=== PATIENT | female | born 1985 | race Caucasian/White ===

== ENCOUNTER → 2019-03-26 | Outpatient (CLI) | payer BC ==
--- NOTE | 2019-03-26 11:28 | XR ---
Lumbar spine HISTORY: Back pain 3 views of the lumbar spine There is multilevel spondylosis. Lumbar vertebral bodies show preserved height, alignment, and bone m ineralization. There is partial sacralization of the left L5 vertebral body with some hypertrophic ch anges present at the articulation of the pelvis. Loss of disc height present at L5-S1. Sclerosis pres ent in the posterior elements. IMPRESSION: Degenerative disc disease and facet arthropathy. Congenital anomaly described above.
--- NOTE | 2019-03-26 11:34 | XR ---
Thoracic spine HISTORY: Back pain 3 views of the thoracic spine Thoracic vertebral bodies show preserved height and bone mineralization. There is multilevel spondylo sis, gentle spinal curvature noted. Disc spaces are maintained. IMPRESSION: No acute abnormality. Thoracic spondylosis. Mild spinal curvature.
--- NOTE | 2019-03-26 13:26 | US ---
EXAMINATION TYPE: US abdomen limited DATE OF EXAM: 03/26/2019 COMPARISON: NONE CLINICAL HISTORY: R10.12 Abdominal pain, M54.6 back pain. LUQ pain x 2 months. Nausea. EXAM MEASUREMENTS: Spleen: 9.8 cm Left Kidney: 11.1 x 5.4 x 6.2 cm *Limited due to gas. 1. Spleen: appears wnl 2. Left Kidney: No hydronephrosis or masses seen Pancreas Limited by bowel gas. IMPRESSION: 1. Limited left upper quadrant ultrasound demonstrates no acute abnormality.
== END | disposition home or self-care (01) ==
LOC: RADUSWWP 10:44
PROVIDERS: ATTEND Internal Medicine Hematology & Oncology
DX: M51.36 Other intervertebral disc degeneration, lumbar region (principal); M47.814 Spondylosis without myelopathy or radiculopathy, thoracic region; M46.96 Unspecified inflammatory spondylopathy, lumbar region; R10.12 Left upper quadrant pain
CPT/HCPCS: 72072; 72100; 76705

== ENCOUNTER → 2019-05-17 | Outpatient (CLI) | payer BC ==
--- NOTE | 2019-05-17 08:52 | CT ---
EXAMINATION TYPE: CT abdomen wo con DATE OF EXAM: 05/17/2019 COMPARISON: None INDICATION: LUQ pain DLP: 538.2 mGycm, Automated exposure control for dose reduction was used. CONTRAST: 0 mL of Isovue 300. Study performed without Oral Contrast TECHNIQUE: Axial images were obtained from above the diaphragm to the pubic rami in the axial plane a t 5 mm thick sections. Reconstructed images are reviewed on the computer in the coronal plane. FINDINGS: Limited CT sections are obtained the lung bases. The lung bases are clear. CT ABDOMEN: Liver: Normal Spleen: Normal Pancreas: Normal Adrenal glands: The adrenal glands are normal. Gallbladder: Normal Kidneys: No masses are evident. No hydronephrosis is present. No cysts are present. No renal stone s are identified. Aorta: Normal Inferior vena cava: Normal. Loops of bowel within the abdomen and pelvis are normal. Study is performed without oral contrast limiting bowel evaluation. There are some scattered diverticuli present IMPRESSIONS: 1. Normal noncontrast CT abdomen 2. Mild scattered diverticulosis without acute diverticulitis.
== END | disposition home or self-care (01) ==
LOC: RADCTMAIN 08:03
PROVIDERS: ATTEND Family Medicine
DX: K57.90 Diverticulosis of intestine, part unspecified, without perforation or abscess without bleeding (principal)
CPT/HCPCS: 74150

== ENCOUNTER 2019-08-24 08:25 | Day surgery (SDC) | payer BC ==
[2019-08-22 12:39] VITALS: BMI 34.5
[~2019-08-24 08:25] MED LIST: LACTATED RINGERS 1,000 ML IV SCH; LIDOCAINE 1% 20 ML VIAL (10MG/ML) FOR IV START INTRADERMA PRN
[2019-08-24 08:47] VITALS: TEMP 97
[2019-08-24] MEDS ORDERED: PROPOFOL 10 MG/ML 20 ML VIAL IV ONE (09:05)
--- NOTE | 2019-08-24 09:18 | P.GSHP ---
History of Present Illness H&P Date: 08/24/19 Chief Complaint: Change in bowel habits Patient today for colonoscopy. She has had complaints of left-sided abdominal pain and change in bowel habits. Frequent diarrhea. No rectal bleeding. No weight loss. Some nausea. Ultrasound and CAT scan normal. Past Medical History Past Medical History: No Reported History Additional Past Medical History / Comment(s): left upper abd. pain on & off since January, gas, bloating, change in bowel habits History of Any Multi-Drug Resistant Organisms: None Reported Past Surgical History: No Surgical Hx Reported Additional Past Surgical History / Comment(s): wisdom teeth removed Past Anesthesia/Blood Transfusion Reactions: Family History of Problems w/ Anesthesia Additional Past Anesthesia/Blood Transfusion Reaction / Comment(s): maternal grandfather's side of family might have anesthesia problem- distant relative never came out of anesthetic & -not sure of actual problem Smoking Status: Never smoker - Past Family History Mother Family Medical History: No Reported History Medications and Allergies Home Medications Medication Instructions Recorded Confirmed Type Dicyclomine [Bentyl] 10 mg PO TID PRN 08/22/19 08/24/19 History Allergies Allergy/AdvReac Type Severity Reaction Status Date / Time No Known Allergies Allergy Verified 08/24/19 08:48 Surgical - Exam Vital Signs Temp Pulse Resp BP Pulse Ox 97 F L 82 16 135/87 97 08/24/19 08:45 08/24/19 08:45 08/24/19 08:45 08/24/19 08:45 08/24/19 08:45 Physical exam: General: Well-developed, well-nourished HEENT: Normocephalic, sclerae nonicteric Abdomen: Nontender, nondistended Extremities: No edema Neuro: Alert and oriented Assessment and Plan (1) Change in bowel habits Narrative/Plan: Will proceed with colonoscopy Current Visit: Yes Status: Acute Code(s): R19.4 - CHANGE IN BOWEL HABIT SNOMED Code(s): 228752355
--- NOTE | 2019-08-24 09:32 | P.PCN ---
Date of Procedure: 08/24/19 Procedure(s) Performed: PREOPERATIVE DIAGNOSIS: Change in bowel habits POSTOPERATIVE DIAGNOSIS: Diverticulosis PROCEDURE: Colonoscopy with random biopsy ANESTHESIA: MAC SURGEON: Fidel Suarez M.D. SPECIMENS: Random colon biopsy ENDOSCOPIC PROCEDURE: The patient was placed on the endoscopy table in the left decubitus position. The Olympus colonoscope was inserted into the anus and passed under direct visualization to the base of the cecum. The appendiceal orifice was visualized. From that point the scope was slowly withdrawn inspecting all surfaces carefully. There were no neoplastic inflammatory or polypoid lesions throughout the cecum, ascending, transverse, descending, sigmoid and rectum. There was mild left-sided diverticulosis noted. Random biopsies were taken to evaluate for microscopic colitis. Digital rectal examination was normal. The patient was taken to the recovery room in stable condition per anesthesia guidelines. RECOMMENDATIONS: Await biopsy results.
[2019-08-24 09:37] VITALS: RESP 18
[2019-08-24 09:49] VITALS: BP 115/75; PULSE 70
== END 2019-08-24 10:05 | disposition home or self-care (01) ==
LOC: ORWHC2ENDO 08:25
PROVIDERS: ATTEND Surgery
DX: K57.30 Diverticulosis of large intestine without perforation or abscess without bleeding (principal); K21.9 Gastro-esophageal reflux disease without esophagitis
CPT/HCPCS: 81025; 88305; 45380; J2704

== ENCOUNTER 2020-09-19 09:49 | Emergency (ER) | payer BC ==
[2020-09-19] MEDS ORDERED: SODIUM CHLORIDE 0.9% 1,000 ML IV STA (10:16)
[2020-09-19] MEDS ORDERED: DICYCLOMINE 10 MG/ML 2 ML AMP IM STA (10:17)
[2020-09-19] MEDS ORDERED: ONDANSETRON 4 MG/2 ML VIAL IVP STA (10:17)
[2020-09-19] MEDS ORDERED: PANTOPRAZOLE 40 MG/10 ML VIAL IVP STA (10:17)
[2020-09-19] MEDS ORDERED: SODIUM CHLORIDE 0.9% 500 ML 500 ML IV STA (10:19)
--- NOTE | 2020-09-19 10:20 | ED ---
Fever HPI - General Chief Complaint: Fever Stated Complaint: Fever/covid symptoms/Inquicker Time Seen by Provider: 09/19/20 10:06 Source: patient Mode of arrival: ambulatory Limitations: no limitations - History of Present Illness Initial Comments: 35-year-old female presenting to the emergency department with a chief complaint of nausea vomiting diarrhea and body aches. Patient states her symptoms began about 2 days ago when she developed profuse diarrhea but no signs of hematochezia or melena. Patient states the following day she also developed nausea with multiple episodes of nonbilious and nonbloody vomiting. States she continues to be nauseous with no pulmonary symptoms. States she also developed some body aches but denies any cough. States one day ago she also developed a fever of 101. Patient states she has no appetite. Denies any cough, wheezing, shortness of breath, chest pain. Denies any vaginal urinary symptoms. Denies any back pain abdominal pain. - Related Data Home Medications Medication Instructions Recorded Confirmed Cyanocobalamin [Vitamin B-12 1,000 mcg SQ Q28H 09/19/20 09/19/20 Injection] Ergocalciferol [Vitamin D2] 50,000 unit PO MO 09/19/20 09/19/20 Famotidine [Pepcid] 20 mg PO DAILY 09/19/20 09/19/20 L.acidoph,Paracasei, B.lactis 1 cap PO DAILY 09/19/20 09/19/20 [Probiotic] Levomefolate Calcium 7.5 mg PO DAILY 09/19/20 09/19/20 [l-Methylfolate Calcium] Semaglutide [Ozempic] 1 mg SQ MO 09/19/20 09/19/20 Previous Rx's Medication Instructions Recorded Ondansetron Odt [Zofran Odt] 4 mg PO Q8HR PRN #20 tab 09/19/20 Allergies Allergy/AdvReac Type Severity Reaction Status Date / Time No Known Allergies Allergy Verified 09/19/20 10:36 Review of Systems ROS Statement: Those systems with pertinent positive or pertinent negative responses have been documented in the HPI. ROS Other: All systems not noted in ROS Statement are negative. Past Medical History Past Medical History: No Reported History History of Any Multi-Drug Resistant Organisms: None Reported Past Surgical History: No Surgical Hx Reported Past Psychological History: Anxiety Smoking Status: Never smoker Past Alcohol Use History: Occasional Past Drug Use History: None Reported General Exam Limitations: no limitations General appearance: alert, in no apparent distress, obese Head exam: Present: atraumatic, normocephalic, normal inspection Eye exam: Present: normal appearance, PERRL, EOMI Pupils: Present: normal accommodation ENT exam: Present: normal exam, normal oropharynx, mucous membranes dry, TM's normal bilaterally, normal external ear exam Neck exam: Present: normal inspection, full ROM. Absent: tenderness Respiratory exam: Present: normal lung sounds bilaterally. Absent: respiratory distress, wheezes, rales Cardiovascular Exam: Present: regular rate, normal rhythm, normal heart sounds. Absent: bradycardia, tachycardia, systolic murmur, diastolic murmur GI/Abdominal exam: Present: soft. Absent: tenderness, guarding, rebound Extremities exam: Present: normal inspection, full ROM, normal capillary refill. Absent: tenderness, pedal edema, joint swelling, calf tenderness Back exam: Present: normal inspection, full ROM. Absent: tenderness, CVA tenderness (R), CVA tenderness (L) Neurological exam: Present: alert, oriented X3, CN II-XII intact, normal gait Psychiatric exam: Present: normal affect, normal mood Skin exam: Present: warm, dry, intact, normal color Course Vital Signs 09/19/20 09:56 Temperature 98.0 F Pulse Rate 121 H Respiratory 20 Rate Blood Pressure 141/96 O2 Sat by Pulse 95 Oximetry Medical Decision Making - Medical Decision Making 35-year-old female presenting to emergency department with a chief complaint nausea vomiting diarrhea fever. On physical examination, patient has no abdominal pain. Patient is tachycardic on arrival. I suspect this is secondary to fluid loss from nausea vomiting diarrhea. Patient was given 1.5 L of IV fluids and anti-medics. On reevaluation patient reports improvement in symptoms. Patient was not able to give a urine sample. States there is no guillermina nce for . CBC and CMP is unremarkable. Coag testing pending. She was advised to sulfa side until she received the results of the testing. She was advised to drink plenty of fluids. She will be discharged with Zofran. Return parameters discussed the patient is a understanding and agreeable. On reevaluation, there is improvement in symptoms and vital sign. Case discussed with physician. - Lab Data Result diagrams: 09/19/20 10:53 09/19/20 10:53 Lab Results 09/19/20 09/19/20 Range/Units 10:53 10:53 WBC 6.9 (3.8-10.6) k/uL RBC 5.27 (3.80-5.40) m/uL Hgb 15.1 (11.4-16.0) gm/dL Hct 44.3 (34.0-46.0) % MCV 84.1 (80.0-100.0) fL MCH 28.7 (25.0-35.0) pg MCHC 34.1 (31.0-37.0) g/dL RDW 13.1 (11.5-15.5) % Plt Count 326 (150-450) k/uL MPV 6.7 Neutrophils % 70 % Lymphocytes % 19 % Monocytes % 8 % Eosinophils % 2 % Basophils % 0 % Neutrophils # 4.9 (1.3-7.7) k/uL Lymphocytes # 1.3 (1.0-4.8) k/uL Monocytes # 0.5 (0-1.0) k/uL Eosinophils # 0.1 (0-0.7) k/uL Basophils # 0.0 (0-0.2) k/uL Sodium 140 (137-145) mmol/L Potassium 3.8 (3.5-5.1) mmol/L Chloride 106 (98-107) mmol/L Carbon Dioxide 24 (22-30) mmol/L Anion Gap 10 mmol/L BUN 20 H (7-17) mg/dL Creatinine 0.73 (0.52-1.04) mg/dL Est GFR (CKD-EPI)AfAm >90 (>60 ml/min/1.73 sqM) Est GFR (CKD-EPI)NonAf >90 (>60 ml/min/1.73 sqM) Glucose 97 (74-99) mg/dL Calcium 9.3 (8.4-10.2) mg/dL Total Bilirubin 0.8 (0.2-1.3) mg/dL AST 19 (14-36) U/L ALT 14 (4-34) U/L Alkaline Phosphatase 88 (38-126) U/L Total Protein 7.5 (6.3-8.2) g/dL Albumin 4.4 (3.5-5.0) g/dL Disposition Clinical Impression: Nausea vomiting and diarrhea, Generalized body aches Disposition: HOME SELF-CARE Condition: Stable Instructions (If sedation given, give patient instructions): Fever in Adults (ED) Additional Instructions: Take prescribed medication as directed. He will be contacted regarding Covid results in the next 3-5 days. Until then, self isolate and take Tylenol if he developed fever. Drink plenty of fluids.. Return to emergency department if symptoms worsen Prescriptions: Ondansetron Odt [Zofran Odt] 4 mg PO Q8HR PRN #20 tab PRN Reason: Nausea Is patient prescribed a controlled substance at d/c from ED?: No Referrals: Justin Alvarez DO [Primary Care Provider] - 1-2 days Time of Disposition: 12:18
[2020-09-19 11:13] LABS: Basophils % (A) 0 %; Eosinophils # (A) 0.1 k/uL (0-0.7); Eosinophils % (A) 2 %; HCT 44.3 % (34.0-46.0); HGB 15.1 gm/dL (11.4-16.0); Lymphocytes # (A) 1.3 k/uL (1.0-4.8); Lymphocytes % (A) 19 %; MCH 28.7 pg (25.0-35.0); MCHC 34.1 g/dL (31.0-37.0); MCV 84.1 fL (80.0-100.0); Mean Platelet Volume 6.7; Monocytes # (A) 0.5 k/uL (0-1.0); Monocytes % (A) 8 %; Neutrophils # (A) 4.9 k/uL (1.3-7.7); Neutrophils % (A) 70 %; Platelet Count 326 k/uL (150-450); RBC 5.27 m/uL (3.80-5.40); RDW 13.1 % (11.5-15.5); WBC 6.9 k/uL (3.8-10.6)
[2020-09-19 11:28] LABS: ALT 14 U/L (4-34); AST 19 U/L (14-36); African American GFR (CKD) >90 (>60 ml/min/1.73 sqM); Albumin 4.4 g/dL (3.5-5.0); Alkaline Phosphatase 88 U/L (38-126); Anion Gap 10 mmol/L; Blood Urea Nitrogen 20 mg/dL (7-17); Calcium 9.3 mg/dL (8.4-10.2); Carbon Dioxide 24 mmol/L (22-30); Chloride 106 mmol/L (98-107); Glucose 97 mg/dL (74-99); Non-African American GFR(CKD) >90 (>60 ml/min/1.73 sqM); Potassium 3.8 mmol/L (3.5-5.1); Sodium 140 mmol/L (137-145); Total Bilirubin 0.8 mg/dL (0.2-1.3); Total Protein 7.5 g/dL (6.3-8.2)
[2020-09-19 12:37] VITALS: BP 112/85; PULSE 66; RESP 18; TEMP 98.4
== END 2020-09-19 12:39 | disposition home or self-care (01) ==
LOC: EC 09:49
DX: R11.2 Nausea with vomiting, unspecified (principal); R19.7 Diarrhea, unspecified; R52 Pain, unspecified; E66.9 Obesity, unspecified; Z68.34 Body mass index [BMI] 34.0-34.9, adult; Z20.828 Contact with and (suspected) exposure to other viral communicable diseases
CPT/HCPCS: 80053; 85025; 99283; 96374; 96375; 96361 ×2; 96372; U0003; J0500; J2405; C9113

== ENCOUNTER → 2021-02-11 | Outpatient (CLI) | payer BC ==
--- NOTE | 2021-02-11 09:42 | CT ---
EXAMINATION TYPE: CT soft tissue neck w con DATE OF EXAM: 02/11/2021 COMPARISON: None HISTORY: Left neck mass, dysphagia CT DLP: 640 mGycm CONTRAST: Patient injected with 100 ml mL of Isovue 300. TECHNIQUE: Axial images at 3 mm thick sections. Reconstructed images in the coronal plane and sagitt al plane are reviewed. FINDINGS: Limited CT sections are obtained the lung apices. The lung apices appear clear. CT neck: The torus tubarius and fossa of Rosenmuller are normal. Liner Replacer spaces are normal. Para nasal sinuses and mastoid air cells are clear. Parotid glands appear normal and symmetrical. Submandibular glands, are normal. Parapharyngeal spac es are normal. No suspicious adenopathy is evident. The hypopharynx appears within normal limits. Vocal cord level appear symmetrical. Thyroid as visualized is normal. Osseous structures are normal. No suspicious soft tissue abnormalities are identified. IMPRESSIONS: 1. Normal soft tissue neck CT
--- NOTE | 2021-02-11 10:44 | FL ---
EXAMINATION TYPE: FL barium swallow DATE OF EXAM: 02/11/2021 COMPARISON: None HISTORY: Dysphasia, left neck mass TECHNIQUE: A double air contrast UGI study is performed. FINDINGS: Esophagus dilation normal caliber and has a normal contour to the gastroesophageal junction. The phi roesophageal junction opens to normal caliber. No intraluminal or extramural defects are evident. A f ew tertiary contractions were evident during the examination and the distal third of the esophagus. M ild reflux was elicited during the exam. Fluoroscopy time: 1 minute 19 seconds Images: 18 IMPRESSIONS: 1. Mild presbyesophagus. 2. Mild gastroesophageal reflux
== END | disposition home or self-care (01) ==
LOC: RADCTMAIN 07:34
PROVIDERS: ATTEND Otolaryngology
DX: K21.9 Gastro-esophageal reflux disease without esophagitis (principal); K22.8 Other specified diseases of esophagus
CPT/HCPCS: 74220; 70491; Q9967

== ENCOUNTER → 2021-11-30 | Outpatient (CLI) | payer BC ==
--- NOTE | 2021-12-01 08:11 | MM ---
Reason for exam: clinical finding. Baseline mammogram. History: Took hormonal contraceptives for 15 years. Physical Findings: Nurse Summary: 0.5cm nodule in the right breast at 6 o'clock (nurse bryn). MG 3D Diag Mammo W/Cad MACARIO Bilateral CC and MLO view(s) were taken. There are scattered fibroglandular densities. Finding: There is a 10 mm circumscribed oval mass located 8 cm from the nipple in the outer quadrant, middle, posterior position of the left breast. These results were verbally communicated with the patient and result sheet given to the patient on 11/30/21. ASSESSMENT: Incomplete: need additional imaging evaluation, BI-RAD 0 RECOMMENDATION: Ultrasound of both breasts. (right palpable, left mammographic lesion)
--- NOTE | 2021-12-01 08:14 | USB ---
Reason for exam: additional evaluation requested from abnormal screening. History: Took hormonal contraceptives for 15 years. US Breast Limited BILAT Right limited breast ultrasound including focal area of concern, retroareolar and axilla demonstrates a 0.7 x 0.5 x 0.7cm oval lesion at 7 o'clock, possible dermal in origin, presumed benign. Left limited breast ultrasound including focal area of concern, retroareolar and axilla demonstrates a 0.5 x 0.3 x 0.5cm lesion at 5 o'clock, likely not corresponding to mammographic abnormality. Left mammographic abnormality favor benign lymph node versus simple cyst. These results were verbally communicated with the patient and result sheet given to the patient on 11/30/21. ASSESSMENT: Probably benign, BI-RAD 3 RECOMMENDATION: Follow-up diagnostic mammogram and ultrasound of the left breast in 3 months. (3-6 months)
== END | disposition home or self-care (01) ==
LOC: RADMAMWWP 14:05
PROVIDERS: ATTEND Internal Medicine Hematology & Oncology
DX: N63.0 Unspecified lump in unspecified breast (principal); R92.8 Other abnormal and inconclusive findings on diagnostic imaging of breast
CPT/HCPCS: 77062; 77066

== ENCOUNTER → 2022-03-02 | Outpatient (CLI) | payer BC ==
--- NOTE | 2022-03-02 10:00 | MM ---
Reason for exam: follow-up at short interval from prior study. Last mammogram was performed 3 months ago. History: Took hormonal contraceptives for 15 years. Physical Findings: A clinical breast exam by your physician is recommended on an annual basis and results should be correlated with mammographic findings. MG 3D Diag Mammo W/Cad LT CC and MLO view(s) were taken of the left breast. Prior study comparison: November 30, 2021, bilateral MG 3d diag mammo w/cad MACARIO. There are scattered fibroglandular densities. Finding: There is a stable 9 mm circumscribed oval mass in the slight outer quadrant, middle position of the left breast. There is no discrete abnormality. Results were given to the patient verbally at the time of the exam. ASSESSMENT: Incomplete: need additional imaging evaluation, BI-RAD 0 RECOMMENDATION: Ultrasound of the left breast.
--- NOTE | 2022-03-02 10:01 | USB ---
Reason for exam: additional evaluation requested from abnormal screening. History: Took hormonal contraceptives for 15 years. Physical Findings: A clinical breast exam by your physician is recommended on an annual basis and results should be correlated with mammographic findings. US Breast Limited LT Left limited breast ultrasound including focal area of concern, retroareolar and axilla demonstrates a 0.7 x 0.7 x 0.3cm oval, cystic cluster at 4 o'clock and a 1.7 x 2.1 x 1.0cm lymph node at the axilla. Scanned 12-6 o'clock. Results were given to the patient verbally at the time of the exam. ASSESSMENT: Probably benign, BI-RAD 3 RECOMMENDATION: Ultrasound of the left breast in 6 months.
== END | disposition home or self-care (01) ==
LOC: RADMAMWWP 08:44
PROVIDERS: ATTEND Internal Medicine Hematology & Oncology
DX: R92.8 Other abnormal and inconclusive findings on diagnostic imaging of breast (principal)
CPT/HCPCS: 77061; 77065

== ENCOUNTER 2022-07-13 09:28 | Day surgery (SDC) | payer BC ==
[2022-07-08 10:34] VITALS: BMI 35.0
[~2022-07-13 09:28] MED LIST changes: +LIDOCAINE 1% (10MG/ML) FOR IV START INTRADERMA PRN; -LIDOCAINE 1% 20 ML VIAL (10MG/ML) FOR IV START INTRADERMA PRN
[2022-07-13] MEDS ORDERED: LACTATED RINGERS 1,000 ML IV ONE (10:17)
[2022-07-13 10:19] VITALS: TEMP 98.4
[2022-07-13] MEDS ORDERED: PROPOFOL 10 MG/ML 20 ML VIAL IV ONE (11:33)
--- NOTE | 2022-07-13 11:43 | P.GSHP ---
History of Present Illness H&P Date: 07/13/22 Chief Complaint: GERD 37-year-old female here today for upper endoscopy. Patient with complaints of chronic acid reflux. Recently had an episode of esophagitis. Takes Protonix daily. Taking Carafate intermittently. Past Medical History Past Medical History: GERD/Reflux, Osteoarthritis (OA) Additional Past Medical History / Comment(s): HX IBS, DIVERTICULITIS, ESOPHAGITIS, DDD. History of Any Multi-Drug Resistant Organisms: None Reported Past Surgical History: No Surgical Hx Reported Additional Past Surgical History / Comment(s): COLONOSCOPY Past Anesthesia/Blood Transfusion Reactions: No Reported Reaction, Motion Sickness Past Psychological History: Anxiety Smoking Status: Never smoker Past Alcohol Use History: Occasional Past Drug Use History: None Reported - Past Family History Mother Family Medical History: No Reported History Medications and Allergies Home Medications Medication Instructions Recorded Confirmed Type Cyanocobalamin [Vitamin B-12 1,000 mcg SQ WEEKLY 09/19/20 07/13/22 History Injection] Ergocalciferol [Vitamin D2] 50,000 unit PO MO 09/19/20 07/13/22 History L.acidoph,Paracasei, B.lactis 1 cap PO DAILY 09/19/20 07/13/22 History [Probiotic] Ashwagandha Root Extract 500 mg PO DAILY 07/08/22 07/13/22 History [Ashwagandha] Levomefolate Calcium 15 mg PO DAILY 07/08/22 07/13/22 History [l-Methylfolate Calcium] Multivit with Calcium,Iron,Min 1 each PO DAILY 07/08/22 07/13/22 History [Women's Multivitamin] Pantoprazole [Protonix] 40 mg PO DAILY 07/08/22 07/13/22 History Sucralfate [Carafate] 1 gm PO AC-TID 07/08/22 07/13/22 History Allergies Allergy/AdvReac Type Severity Reaction Status Date / Time No Known Allergies Allergy Verified 07/13/22 10:02 Surgical - Exam Vital Signs Temp Pulse Resp BP Pulse Ox 98.4 F 78 17 118/76 95 07/13/22 10:00 07/13/22 10:00 07/13/22 10:00 07/13/22 10:00 07/13/22 10:00 Physical exam: General: Well-developed, well-nourished HEENT: Normocephalic, sclerae nonicteric Abdomen: Nontender, nondistended Extremities: No edema Neuro: Alert and oriented Assessment and Plan (1) GERD (gastroesophageal reflux disease) Narrative/Plan: Will proceed with upper endoscopy. Current Visit: Yes Status: Acute Code(s): K21.9 - GASTRO-ESOPHAGEAL REFLUX DISEASE WITHOUT ESOPHAGITIS SNOMED Code(s): 903827779
[2022-07-13 12:01] VITALS: RESP 16
[2022-07-13 12:13] VITALS: BP 123/84; PULSE 60
--- NOTE | 2022-07-14 18:09 | P.PCN ---
Date of Procedure: 07/13/22 Procedure(s) Performed: Date of Procedure: 07/13/22 Procedure(s) Performed: Preoperative Dx: GERD Postoperative Dx: Gastritis, small gastric polyp Procedure: EGD with Bx Anesthesia: Sedation Endoscopist: Dr. Suarez Specimens: Gastritis, polyp Endoscopic Procedure: The patient was on the endoscopy table in the left decubitus position. The Olympus gastroscope was inserted into the oropharynx and passed under direct visualization to the region of the third portion of the duodenum. From that point the scope was slowly withdrawn inspecting all surfaces carefully. There were no neoplastic inflammatory or polypoid lesions throughout the duodenum. The pylorus was widely patent. The stomach was carefully inspected. There was mild gastritis present. A biopsy of the antrum took place to rule out H. pylori. A few small gastric polyps were seen. The largest was removed using the cold biopsy forceps. Retroflexion revealed a normal hiatus. The esophagus was then carefully examined. There were no neoplastic inflammatory or polypoid lesions throughout the visualized esophagus. The patient was then taken to the recovery room in stable condition per anesthesia guidelines. Recommendations: Continue antiacid therapy. As needed Carafate. Await biopsy results.
== END 2022-07-13 12:29 | disposition home or self-care (01) ==
LOC: ORWHC2ENDO 09:28
PROVIDERS: ATTEND Surgery
DX: K29.50 Unspecified chronic gastritis without bleeding (principal); K21.9 Gastro-esophageal reflux disease without esophagitis; M19.90 Unspecified osteoarthritis, unspecified site; F41.9 Anxiety disorder, unspecified; F10.99 Alcohol use, unspecified with unspecified alcohol-induced disorder; Z87.19 Personal history of other diseases of the digestive system; Z79.899 Other long term (current) drug therapy
CPT/HCPCS: 43239; 81025; J2704; 88305